=== PATIENT | female | born 1995 | race Caucasian/White ===

== ENCOUNTER 2019-01-02 22:53 | Observation (INO) ==
[2019-01-02 23:58] LABS: Hematocrit 38.5 % (37.0-47.0); Hemoglobin 12.9 gm/dL (12.5-16.0); Mean Cell Volume 93.9 fl (78-100); Mean Corpuscular Hemoglobin 31.5 pg (27-31); Mean Corpuscular Hgb Conc 33.5 g/dl (32-36); Mean Platelet Volume 9.8 fl (8-12.5); Neutrophil # 8.7 K/mm3 (1.3-6.0); Neutrophil % 73.3 % (42-75.0); Platelet Count 292 K/mm3 (150-450); Red Cell Distribution Width 13.8 % (11.5-14.0); White Blood Count 11.9 K/mm3 (4.0-10.5)
[2019-01-03 00:13] LABS: Albumin * 2.6 gm/dl (3.4-5.0); Anion Gap 15.5 mmol/L (6.8-13.8); BUN/Creatinine Ratio 13.9 (9.0-21.6); Bilirubin, Total 0.3 mg/dL (0.0-1.1); Ca. Corrected For Albumin 10.3 mg/dL (8.4-10.2); Calcium * 9.5 mg/dL (7.9-10.9); Potassium 3.5 mmol/L (3.4-4.6); Total Protein 6.8 gm/dL (6.2-8.2)
[2019-01-03] MEDS ORDERED: MISOPROSTOL 100 MCG TABLET VG PRN (00:39)
[2019-01-03] MEDS ORDERED: PENICILLIN G POTASSIUM 5 MILLIONUNT in DEXTROSE 5 % IN WATER 100 ML IV ONE ×2 (00:39)
[2019-01-03] MEDS ORDERED: RINGER'S SOLUTION,LACTATED 1,000 ML IV PRN (01:18)
[2019-01-03] MEDS ORDERED: RINGER'S SOLUTION,LACTATED 1,000 ML IV ONE (01:19)
[2019-01-03 04:10] LABS: Cocaine Ur Negative (NEGATIVE); Urine Barbiturate Negative (NEGATIVE); Urine Benzodiazepines Negative (NEGATIVE); Urine Opiates Negative (NEGATIVE); Urine PCP Negative (NEGATIVE); Urine THC Negative (NEGATIVE)
[2019-01-03 04:43] VITALS: BP 139/95
[2019-01-03] MEDS: PENICILLIN G POTASSIUM 2.5 MILLIONUNT in DEXTROSE 5 % IN WATER 100 ML IV SCH ×4 (04:55→09:24)
[2019-01-03] MEDS ORDERED: PENICILLIN G POTASSIUM 2.5 MILLIONUNT in DEXTROSE 5 % IN WATER 100 ML IV SCH ×2 (09:15)
[2019-01-03] MEDS ORDERED: PRISTIQ 100 MG PO SCH (09:30)
[2019-01-03] MEDS ORDERED: FAMOTIDINE 20 MG TABLET PO SCH (09:30)
--- NOTE | 2019-01-03 16:26 | HP ---
Chief Complaint - Chief Complaint Date of Service: 01/03/19 - admitted 01/02/19 Time of Service: 16:15 Chief Complaint: LOF History of Present Illness: 24 yo presents to L&D last pm at 37 weeks complaining of leaking of fluid for about 2 hours. Patient states she wet her pants 2x over a 2 hour period last pm. She soaked through her underpants but did not have any fluid run down her leg. Admits to mild contractions. Denies decreased movement, TADEO, visual changes, epigastric pain or recent coitus/trauma. Upon presentation to L&D she was noted to have elevated blood pressures but normal CBC, CMP, and Pr/Cr ratio. She was given a dose of cytotec and kept for further observation. After the first couple hours her BPs were all WNL and her tracing was very reassuring. She made no cervical change and was comfortable despite frequent contractions. After several hours of no cervical change, no preeclamptic symptoms, and normal blood pressures she was discharged to home. Medical History (Updated 01/03/19 @ 16:26 by Brad Corado DO) Acid reflux Onset Date: Unknown Anxiety Onset Date: Unknown Borderline personality disorder Onset Date: Unknown Colloid cyst of brain Onset Date: ~2017 Depression Onset Date: Unknown Ovarian cyst Onset Date: ~2017 Pseudotumor cerebri Onset Date: ~2013 Vestibular migraine Onset Date: ~2007 Vitamin D deficiency Onset Date: Unknown Surgical History: Surgical History (Updated 11/23/18 @ 00:14 by Kristine Becerra MD) History of breast biopsy Onset Date: ~2014 right side-fibrocystic History of endoscopy Onset Date: ~2017 History of wisdom tooth extraction Onset Date: Unknown Family History: Family History (Updated 07/23/18 @ 14:55 by Jeni Frias CMA) Mother Cancer melanoma Thyroid disease Anxiety Hypertension Father Unknown family medical history Social History: Preferred Language [place] Smoking Status Never smoker (Last Updated 12/31/18 @ 10:26 by Kristine Becerra MD) No Social History Section defined Review Of Systems (GEN) - Review of Systems Generalized/Overall Review: Present: No Symptoms Reported EENTM: Present: No Symptoms Reported Respiratory: Present: No Symptoms Reported Cardiac: Present: No Symptoms Reported Abdominal: Present: No Symptoms Reported Genitourinary: Present: Other - leaking fluid, uterine cramping. Absent: Urge ncy, Frequency, Hematuria, Dysuria Musculoskeletal: Present: No Symptoms Reported Neurological: Present: No Symptoms Reported Skin: Present: No Symptoms Reported Endocrine: Present: No Symptoms Reported Allergies/Adverse Reactions: Allergies Allergy/AdvReac Type Severity Reaction Status Date / Time No Known Allergies Allergy Verified 01/02/19 23:15 Home Medications: HOME MEDICATIONS cholecalciferol (vitamin D3) 5,000 unit capsule 5,000 unit PO DAILY 07/23/18 [Last Taken 01/01/19] desvenlafaxine succinate ER 100 mg tablet,extended release 24 hr 100 mg PO DAILY 07/23/18 [Last Taken 01/02/19] pediatric multivitamin no.76 chewable tablet 1 tab PO DAILY 10/15/18 [Last Taken 01/01/19] famotidine 20 mg tablet 20 mg PO BID 11/08/18 [Last Taken 01/02/19] Doxylamine Succinate [Unisom] 6.25 mg PO 01/02/19 [Last Taken 01/01/19] Exam - Exam Vital Signs: Vital Signs - Last Taken Temp 36.5 C 01/02/19 23:30 Pulse 95 01/02/19 23:30 Resp 18 01/02/19 23:30 BP 139/95 H 01/02/19 23:30 Pulse Ox 97 01/02/19 23:30 BPs all WNL after 1st 2 hours. D/C BP 121/63. NST reactive, no decels, good BTBV Constitutional: Present: Alert, Oriented x3, Cooperative, No distress ENT Exam: Present: hearing grossly normal Respiratory: Present: lungs clear, no respiratory distress Cardiovascular/Chest: Present: normal peripheral pulses, regular rate, rhythm, no edema Abdomen: Present: soft, nontender, no rebound tenderness, other - gravid /Rectal: Present: Other - cl/25/-3 Extremity: Present: no calf tenderness. Absent: lower extremity edema Skin Exam: Present: normal color, warm/dry, no cyanosis Neurologic: Present: alert, normal mood/affect, oriented x 3, other - DTR 2/4 b/l patella, no clonus Appearance: Present: appropriate appearance, appropriate insight Eye contact: Present: cooperative, good eye contact Diagnostic Studies: Abnormal Lab Results 01/02/19 01/02/19 01/02/19 Range/Units 23:50 23:55 23:55 WBC 11.9 H (4.0-10.5) K/mm3 RBC 4.10 L (4.2-5.4) M/mm3 MCH 31.5 H (27-31) pg Immature Gran % (Auto) 0.50 H (0.001-0.429) % Immature Gran # (Auto) 0.06 H (0.000-0.0310) K/mm3 Lymphocytes % 17.7 L (20-51) % Neutrophils # 8.7 H (1.3-6.0) K/mm3 Anion Gap 15.5 H (6.8-13.8) mmol/L Calcium Adj for Albumin 10.3 H (8.4-10.2) mg/dL ALT 14 L (19-67) U/L Albumin 2.6 L (3.4-5.0) gm/dl U Random Total Protein 13.0 H (0-12) mg/dL Laboratory Results WBC 11.9 K/mm3 (4.0-10.5) H 01/02/19 23:55 RBC 4.10 M/mm3 (4.2-5.4) L 01/02/19 23:55 Hgb 12.9 gm/dL (12.5-16.0) 01/02/19 23:55 Hct 38.5 % (37.0-47.0) 01/02/19 23:55 MCV 93.9 fl (78-100) 01/02/19 23:55 MCH 31.5 pg (27-31) H 01/02/19 23:55 MCHC 33.5 g/dl (32-36) 01/02/19 23:55 RDW 13.8 % (11.5-14.0) 01/02/19 23:55 Plt Count 292 K/mm3 (150-450) 01/02/19 23:55 MPV 9.8 fl (8-12.5) 01/02/19 23:55 Immature Gran % (Auto) 0.50 % (0.001-0.429) H 01/02/19 23:55 Immature Gran # (Auto) 0.06 K/mm3 (0.000-0.0310) H 01/02/19 23:55 73.3 % (42-75.0) 01/02/19 23:55 17.7 % (20-51) L 01/02/19 23:55 7.1 % (0.0-9) 01/02/19 23:55 1.2 % (0.0-3.0) 01/02/19 23:55 0.2 % (0.0-1.0) 01/02/19 23:55 Nucleated RBC % 0.0 k/mm3 (0-1) 01/02/19 23:55 8.7 K/mm3 (1.3-6.0) H 01/02/19 23:55 2.10 k/mm3 (1.5-3.5) 01/02/19 23:55 0.8 k/mm3 (0.0-1.0) 01/02/19 23:55 0.1 k/mm3 (0.0-0.7) 01/02/19 23:55 Absolute Basophils 0.0 k/mm3 (0.0-0.1) 01/02/19 23:55 Sodium 139 mmol/L (132-142) 01/02/19 23:55 139 mmol/L (130-142) 01/02/19 23:55 Potassium 3.5 mmol/L (3.4-4.6) 01/02/19 23:55 Chloride 103 mmol/L (97-106) 01/02/19 23:55 Carbon Dioxide 24.0 mmol/L (24-32.6) 01/02/19 23:55 15.5 mmol/L (6.8-13.8) H 01/02/19 23:55 BUN 10 mg/dL (3-23) 01/02/19 23:55 0.72 mg/dL (0.4-1.4) 01/02/19 23:55 Est GFR (Non-Af Amer) 106 mL/min (60-130) D 01/02/19 23:55 13.9 (9.0-21.6) 01/02/19 23:55 101 mg/dL (70-110) 01/02/19 23:55 Calcium 9.5 mg/dL (7.9-10.9) 01/02/19 23:55 Calcium Adj for Albumin 10.3 mg/dL (8.4-10.2) H 01/02/19 23:55 0.3 mg/dL (0.0-1.1) 01/02/19 23:55 AST 13 U/L (0-48) 01/02/19 23:55 ALT 14 U/L (19-67) L 01/02/19 23:55 155 U/L (50-170) 01/02/19 23:55 6.8 gm/dL (6.2-8.2) 01/02/19 23:55 2.6 gm/dl (3.4-5.0) L 01/02/19 23:55 Ur Random Creatinine 86.5 mg/dL (60-200) 01/02/19 23:50 U Random Total Protein 13.0 mg/dL (0-12) H 01/02/19 23:50 U [place] Prot/Creat Ratio 150 mg/gm (0-199) 01/02/19 23:50 Negative (NEGATIVE) 01/03/19 03:25 Negative (NEGATIVE) 01/03/19 03:25 Ur Phencyclidine Scrn Negative (NEGATIVE) 01/03/19 03:25 Urine Amphetamine Negative (NEGATIVE) 01/03/19 03:25 U Benzodiazepines Scrn Negative (NEGATIVE) 01/03/19 03:25 Negative (NEGATIVE) 01/03/19 03:25 Negative (NEGATIVE) 01/03/19 03:25 Assessment/Plan - Assessment/Plan (1) Elevated blood pressure complicating in third trimester, antepartum Assessment: Preeclampsia precautions. Discharge to home with follow up NST and appt in 3 days. Problem: Resolved (2) Premature rupture of membranes Problem: Ruled-out Qualifiers: PROM onset of labor timing: unspecified duration between rupture of membranes and onset of labor PROM gestational age: full term Qualified Code(s): O42.92 - Full-term premature rupture of membranes, unspecified as to length of time between rupture and onset of labor
== END 2019-01-03 12:30 | disposition home or self-care (01) ==
LOC: OBCLINIC 22:53 → INTOOBSV 01-03 00:36 → OB 01-03 00:36
PROVIDERS: ADMIT Obstetrics & Gynecology; ATTEND Obstetrics & Gynecology
CPT/HCPCS: 36415; 59025; 80053; 80307; 82570; 84155; 84156; 85025; G0378

== ENCOUNTER 2019-01-16 00:07 | Inpatient (IN) ==
[2019-01-16] MEDS ORDERED: OXYTOCIN/DEXTROSE 5%-WATER 30 UNITS/500 ML BAG IV ONE (00:10)
[2019-01-16] MEDS ORDERED: DEXTROSE 5%-LACTATED RINGERS 1,000 ML IV PRN (00:10)
[2019-01-16] MEDS ORDERED: ONDANSETRON 4 MG TAB.RAPDIS PO PRN (00:10)
[2019-01-16] MEDS ORDERED: MISOPROSTOL 100 MCG TABLET VG PRN (00:10)
[2019-01-16] MEDS ORDERED: PENICILLIN G POTASSIUM 5 MILLIONUNT in DEXTROSE 5 % IN WATER 100 ML IV ONE ×2 (00:30)
[2019-01-16 01:21] LABS: Cocaine Ur Negative (NEGATIVE); Urine Barbiturate Negative (NEGATIVE); Urine Benzodiazepines Negative (NEGATIVE); Urine Opiates Negative (NEGATIVE); Urine PCP Negative (NEGATIVE); Urine THC Negative (NEGATIVE)
[2019-01-16] MEDS: PENICILLIN G POTASSIUM 2.5 MILLIONUNT in DEXTROSE 5 % IN WATER 100 ML IV SCH ×10 (05:08→20:16)
[2019-01-16] MEDS: RINGER'S SOLUTION,LACTATED 1,000 ML IV ONE ×2 (07:19→20:17)
--- NOTE | 2019-01-16 12:00 | HP ---
Chief Complaint - Chief Complaint Date of Service: 01/16/19 Time of Service: 11:59 Chief Complaint: induction of labor History of Present Illness: 24 yo at 39 wks here for induction ofl labor due to GHTN. This complicated by anxiety/depression, pseudotumor cerebri, borderline personality. Rh positive Rubella immune GBS positive Medical History (Updated 01/03/19 @ 18:12 by Brad Corado DO) Acid reflux Onset Date: Unknown Anxiety Onset Date: Unknown Borderline personality disorder Onset Date: Unknown Colloid cyst of brain Onset Date: ~2017 Depression Onset Date: Unknown Ovarian cyst Onset Date: ~2017 Pseudotumor cerebri Onset Date: ~2013 Vestibular migraine Onset Date: ~2007 Vitamin D deficiency Onset Date: Unknown Surgical History: Surgical History (Updated 11/23/18 @ 00:14 by Kristine Becerra MD) History of breast biopsy Onset Date: ~2014 right side-fibrocystic History of endoscopy Onset Date: ~2017 History of wisdom tooth extraction Onset Date: Unknown Family History: Family History (Updated 07/23/18 @ 14:55 by Jeni Frias CMA) Mother Cancer melanoma Thyroid disease Anxiety Hypertension Father Unknown family medical history Social History: Preferred Language [place] Smoking Status Never smoker (Last Updated 01/14/19 @ 11:53 by Brad Corado DO) No Social History Section defined Review Of Systems (GEN) - Review of Systems Generalized/Overall Review: Present: No Symptoms Reported EENTM: Present: No Symptoms Reported Respiratory: Present: No Symptoms Reported Cardiac: Present: No Symptoms Reported Abdominal: Present: No Symptoms Reported Genitourinary: Present: No Symptoms Reported Musculoskeletal: Present: No Symptoms Reported Neurological: Present: No Symptoms Reported Skin: Present: No Symptoms Reported Endocrine: Present: No Symptoms Reported Allergies/Adverse Reactions: Allergies Allergy/AdvReac Type Severity Reaction Status Date / Time No Known Allergies Allergy Verified 01/16/19 00:11 Home Medications: HOME MEDICATIONS cholecalciferol (vitamin D3) 5,000 unit capsule 5,000 unit PO DAILY 07/23/18 [Last Taken 01/01/19] desvenlafaxine succinate ER 100 mg tablet,extended release 24 hr 100 mg PO DAILY 07/23/18 [Last Taken 01/02/19] pediatric multivitamin no.76 chewable tablet 1 tab PO DAILY 10/15/18 [Last Taken 01/01/19] famotidine 20 mg tablet 20 mg PO BID 11/08/18 [Last Taken 01/02/19] Doxylamine Succinate [Unisom] 25 mg PO PRN 01/02/19 [Last Taken 01/01/19] Exam - Exam Vital Signs: Vital Signs - Last Taken Temp 36.6 C 01/16/19 01:21 Pulse 98 01/16/19 01:21 Resp 16 01/16/19 01:21 BP 136/93 H 01/16/19 01:21 Pulse Ox 98 01/16/19 01:21 Constitutional: Present: Alert, Oriented x3, Cooperative, No distress ENT Exam: Present: hearing grossly normal Breasts: Present: Exam deferred Respiratory: Present: lungs clear, no respiratory distress Cardiovascular/Chest: Present: regular rate, rhythm, no edema Abdomen: Present: soft, no rebound tenderness, other - /Rectal: Present: Other - cervix- cl/th/high Extremity: Present: no pedal edema, no calf tenderness Skin Exam: Present: normal color, warm/dry, no cyanosis Lymphatic: Present: no adenopathy Neurologic: Present: alert, normal mood/affect, oriented x 3 Appearance: Present: appropriate appearance, appropriate insight Eye contact: Present: cooperative Thoughts: Present: normal thought pattern, no apparent hallucination Diagnostic Studies: Laboratory Results Negative (NEGATIVE) 01/16/19 01:19 Negative (NEGATIVE) 01/16/19 01:19 Ur Phencyclidine Scrn Negative (NEGATIVE) 01/16/19 01:19 Urine Amphetamine Negative (NEGATIVE) 01/16/19 01:19 U Benzodiazepines Scrn Negative (NEGATIVE) 01/16/19 01:19 Negative (NEGATIVE) 01/16/19 01:19 Negative (NEGATIVE) 01/16/19 01:19 Assessment/Plan - Assessment/Plan (1) Gestational hypertension Assessment: Admit for induction of labor. Epidural PRN. IV PCN for GBS prophylaxis Problem: Acute Qualifiers: Trimester: third trimester Qualified Code(s): O13.3 - Gestational [-induced] hypertension without significant proteinuria, third trimester (2) Encounter for induction of labor Problem: Acute (3) Group B Streptococcus carrier state affecting Problem: Acute
--- NOTE | 2019-01-16 12:03 | PN ---
Progess Note - Interim Date: 01/16/19 Time: 12:01 Narrative: 01/16/19 12:01 Patient rating contractions 09/27. VItals stable, occasional mildly elevated BP FHT 130, reassuring Ctxs q2-5 min, s/p cytotec 25mcg at around 0130. PCN x 3 doses Pit started at 3 mu/min Imp: 39 wk IUP, GBS carrier, GHTN Plan: continue current management.
[2019-01-16] MEDS ORDERED: FAMOTIDINE 20 MG TABLET PO SCH (12:15)
--- NOTE | 2019-01-16 13:26 | PN ---
Subjective - Date and Time Seen Date: 01/16/19 Time: 13:24 Objective - Vitals Vitals: Last Vital Signs Temp 36.6 C 01/16/19 01:21 Pulse 98 01/16/19 01:21 Resp 16 01/16/19 01:21 BP 136/93 H 01/16/19 01:21 Pulse Ox 98 01/16/19 01:21 Patient rating contractions as mild Vital signs stable. Pitocin at 3 mu/min. FHT: 130 baseline, reassuring Contractions q 5-6 min Cervix: 1-2/50/-2, Genao catheter placed within the cervix and inflated to 60 mL with normal saline Impression: Intrauterine at 39 weeks induction of labor for gestational hypertension. GBS carrier-status post 3 doses of penicillin. Plan: Continue present plan Assessment/Plan - Problems/Diagnosis (1) Gestational hypertension Problem: Acute Qualifiers: Trimester: third trimester Qualified Code(s): O13.3 - Gestational [-induced] hypertension without significant proteinuria, third trimester (2) Encounter for induction of labor Problem: Acute (3) Group B Streptococcus carrier state affecting Problem: Acute
--- NOTE | 2019-01-16 20:06 | PN ---
Progess Note - Interim Date: 01/16/19 Time: 20:02 Narrative: 01/16/19 20:02 Patient still rating her contractions as mild VItals stable S/p IV PCN x 5 doses for GBS prophylaxis FHT 125, reassuring Ctxs q1-3 min, Pitocin at 12 mu/min Cvx 6/-2, floor bag ruptured around 1900 - clear. Impression: 39 wk IUP progressing well Plan: continue present plan
[2019-01-16] MEDS ORDERED: NALOXONE HCL 1 MG/1 ML SYRG IV PRN (20:35)
[2019-01-16] MEDS ORDERED: ONDANSETRON HCL/PF 2 MG/ML VIAL IV PRN (20:35)
[2019-01-16] MEDS ORDERED: BUPIVACAINE HCL/0.9 % NACL/PF 250 ML EP PRN (20:35)
[2019-01-16] MEDS ORDERED: LIDOCAINE HCL/EPINEPHRINE 20 ML VIAL IJ ONE (20:36)
[2019-01-16] MEDS ORDERED: BUPIVACAINE HCL/PF 30 ML VIAL EP SCH (20:45)
--- NOTE | 2019-01-16 21:04 | ANES ---
Anesthesia Pre Procedure Eval Vitals/Labs: Last Vital Signs Temp 36.6 C 01/16/19 01:21 Pulse 98 01/16/19 01:21 Resp 16 01/16/19 01:21 BP 136/93 H 01/16/19 01:21 Pulse Ox 98 01/16/19 01:21 HOME MEDICATIONS cholecalciferol (vitamin D3) 5,000 unit capsule 5,000 unit PO DAILY 07/23/18 [Last Taken 01/01/19] desvenlafaxine succinate ER 100 mg tablet,extended release 24 hr 100 mg PO DAILY 07/23/18 [Last Taken 01/02/19] pediatric multivitamin no.76 chewable tablet 1 tab PO DAILY 10/15/18 [Last Taken 01/01/19] famotidine 20 mg tablet 20 mg PO BID 11/08/18 [Last Taken 01/02/19] Doxylamine Succinate [Unisom] 25 mg PO PRN 01/02/19 [Last Taken 01/01/19] Allergies/Adverse Reactions: Allergies Allergy/AdvReac Type Severity Reaction Status Date / Time No Known Allergies Allergy Verified 01/16/19 00:11 - Planned Procedure Planned Procedure: Labor epidural Medication List Reviewed:: Yes Allergies Verified: Yes Medical History (Updated 01/16/19 @ 13:15 by Brad Corado DO) Acid reflux Onset Date: Unknown Anxiety Onset Date: Unknown Borderline personality disorder Onset Date: Unknown Colloid cyst of brain Onset Date: ~2017 Depression Onset Date: Unknown Ovarian cyst Onset Date: ~2017 Pseudotumor cerebri Onset Date: ~2013 Vestibular migraine Onset Date: ~2007 Vitamin D deficiency Onset Date: Unknown Surgical History (Updated 11/23/18 @ 00:14 by Kristine Becerra MD) History of breast biopsy Onset Date: ~2014 right side-fibrocystic History of endoscopy Onset Date: ~2017 History of wisdom tooth extraction Onset Date: Unknown Family History (Updated 07/23/18 @ 14:55 by Jeni Frias CMA) Mother Cancer melanoma Thyroid disease Anxiety Hypertension Father Unknown family medical history - Cardiovascular Tolerate Activity: Good Heart Sounds: S1 & S2, Regular - Anesthesia Assessment and Plan ASA Class: PS, II Anesthesia Type Plan: Epidural
--- NOTE | 2019-01-16 21:20 | ANES ---
Post Anesthesia Assessment - Vital Signs Vitals: Last Vital Signs Temp 36.6 C 01/16/19 01:21 Pulse 98 01/16/19 01:21 Resp 16 01/16/19 01:21 BP 136/93 H 01/16/19 01:21 Pulse Ox 98 01/16/19 01:21 Airway Patency: Normal - Mental Status Level Of Consciousness: Awake - N/V Assessment Nausea/Vomiting Presence: None Dehydration:: Yes
--- NOTE | 2019-01-16 21:20 | ANES ---
Anesthesia Procedure Note Procedure Note: ANESTHESIA PROCEDURE NOTE Date of Procedure: 01/16/2019. Time of procedure: 2104. Performed by: Vasu Guido CRNA Human Performance Technologist: None. Preprocedure diagnosis: Active labor. Post procedure diagnosis: Same. Procedure: Insertion of labor epidural. Indications: The patient is a 24 -year-old female in active labor requesting labor epidural for pain management. Findings: See below. Details of the procedure: The patient was placed in a sitting position. DuraPrep as well as Betadine swabs X3 was applied to the patient's back. Patient was then draped in a sterile fashion. Lidocaine 1% was infiltrated to the skin and subcutaneous tissues at the level of the L3-4 interspace. The epidural space was identified using a 18-gauge Tuohy needle with [id number] technique. Epidural catheter was inserted to a depth of 12 centimeters at skin. Negative test dose was elicited using 3 mL of 2% preservative-free lidocaine plus epinephrine 1 200,000. The epidural catheter was then taped and secured in place. A loading dose of 8 mL of 0.25% preservative-free bupivacaine was administered to the epidural catheter after negative aspiration for blood and CSF. EBL: Minimal. Fluids: N/A. Specimen: N/A. Post procedure condition: The patient tolerated the procedure well. No complications were noted. Thank you for this consultation. Vasu Guido CRNA
[2019-01-17] MEDS: PENICILLIN G POTASSIUM 2.5 MILLIONUNT in DEXTROSE 5 % IN WATER 100 ML IV SCH ×6 (00:33→07:41)
--- NOTE | 2019-01-17 01:42 | PN ---
Progess Note - Interim Date: 01/17/19 Time: 01:39 Narrative: 01/17/19 01:39 Patient comfortable with epidural Vital signs stable. Pitocin at 12 mu/min. FHT: 120 baseline, reassuring Contractions irregular and difficult to orange picking supervisor Cervix: 7/90/-2 with caput. Patient is an 7 cm for past 5 hours Impression: Intrauterine at 39-1/7 weeks induction of labor for gestational hypertension with protracted dilation/descent. GBS carrier Plan: IUPC placed to assess adequacy of contractions. If adequate labor and no further change in cervix will consider section.
--- NOTE | 2019-01-17 05:42 | PN ---
Progess Note - Interim Date: 01/17/19 Time: 05:40 Narrative: 01/17/19 05:40 Patient comfortable with epidural Vital signs stable. Pitocin at 12 mu/min. FHT: 125 baseline, reassuring Contractions q 2-3 min Cervix: Complete/+1 Impression: Intrauterine at 39-1/7 weeks induction of labor for gestational hypertension. GBS positive. Plan: Anticipate normal spontaneous vaginal delivery within the next hour
[2019-01-17] MEDS ORDERED: MISOPROSTOL 200 MCG TABLET RC ONE (09:20)
[2019-01-17] MEDS ORDERED: OXYTOCIN/DEXTROSE 5%-WATER 30 UNITS/500 ML BAG IV ONE (09:28)
[2019-01-17] MEDS ORDERED: GLYCERIN/WITCH HAZEL LEAF 40 APPL BOX TP PRN (09:28)
[2019-01-17] MEDS ORDERED: SENNOSIDES 8.6 MG TABLET PO PRN (09:28)
[2019-01-17] MEDS ORDERED: BENZOCAINE/MENTHOL 81 SPRAY CAN TP PRN (09:28)
[2019-01-17] MEDS ORDERED: oxyCODONE HCL/ACETAMINOPHEN 1 TAB TABLET PO PRN ×2 (09:28)
[2019-01-17] MEDS ORDERED: BISACODYL 10 MG SUPP.RECT RC PRN (09:28)
[2019-01-17] MEDS ORDERED: IBUPROFEN 800 MG TABLET PO PRN (09:28)
[2019-01-17] MEDS ORDERED: HYDROCORTISONE 30 APPL TUBE TP PRN (09:28)
[2019-01-17] MEDS: DOCUSATE SODIUM 100 MG CAPSULE PO SCH ×2 (11:57→22:43)
--- NOTE | 2019-01-17 16:59 | OR ---
Operative Report - Dictated Report Narrative: Indication: Maternal exhaustion Pre Procedure: Patient was counseled to the risk, benefits, and alternatives to operative vaginal delivery. All questions were answered. Patient consented to proceed with operative vaginal delivery. Cervix was completely dilated and effaced, maternal- size appropriate for application, bladder was emptied, flexion point identified, cup choice appropriate for application site, maternal tissue excluded from vacuum cup heart rate interpretation: Reassuring, EFW 3800 g, station +2, Position of head LOP rotated to ERIBERTO Anesthesia: epidural Procedure: Total application time of the Kiwi Pro with Palm Pump was 70 seconds Maximum vacuum achieved was 500 mm Hg Number of pulls 3 Number of involuntary releases 2 Vacuum reduced between contractions Advancement in station with each pull Degree of rotation 0-45 Unable to get a good seal due to extensive hair. Continuous pumping of vacuum was required just to get enough hold to apply traction. Both involuntary releases were due to poor seal, not excess traction. Post Procedure: Viable male born at 0912 on 01/17/2019 with Apgars 8 and 9, weighing 3367 g in ERIBERTO position with right foot cord 1. Placenta spontaneously delivered EBL 200 mL, profuse bleeding was controlled with Pitocin 30 mL units per minute, uterine massage, and 800 g of Cytotec given vaginally Cord gases not collected Lacerations second-degree perineal laceration repaired with 3-0 Vicryl Rapide Extensive caput was noted prior to application of vacuum, no significant injuries were identified after delivery no shoulder dystocia History for Definition: * The number of deliveries resulting in a live the patient experienced prior to current hospitalization * The previous delivery of live twins or any live multiple gestation is considered one live event. *If primagravida or nulliparous is documented select zero for the number of previous live births. Live Events: 0
[2019-01-18] MEDS: DOCUSATE SODIUM 100 MG CAPSULE PO SCH ×2 (10:45→21:35)
--- NOTE | 2019-01-18 16:49 | PN ---
Subjective - Date and Time Seen Date: 01/18/19 Time: 16:48 Objective - Vitals Vitals: Last Vital Signs Temp 35.6 C L 01/18/19 07:40 Pulse 81 01/18/19 07:40 Resp 16 01/18/19 07:40 BP 132/75 01/18/19 07:40 Pulse Ox 98 01/18/19 07:40 Patient denies complaints. Breast-feeding well Lochia wnl Abdomen - soft, nontender Uterus - firm, at umbilicus - 1 No calf tenderness Impression: day #1 - s/p vacuum-assisted vaginal delivery. Plan: Continue routine care Assessment/Plan - Problems/Diagnosis (1) Gestational hypertension Problem: Acute Qualifiers: Trimester: third trimester Qualified Code(s): O13.3 - Gestational [-induced] hypertension without significant proteinuria, third trimester (2) Encounter for induction of labor Problem: Acute (3) Group B Streptococcus carrier state affecting Problem: Acute
[2019-01-19 07:56] VITALS: BP 116/76
[2019-01-19] MEDS ORDERED: CHOLECALCIFEROL 5,000 UNIT TABLET PO SCH (09:00)
[2019-01-19] MEDS ORDERED: MULTIVITAMINS 1 TAB TAB.CHEW PO SCH (09:00)
[2019-01-19] MEDS ORDERED: DESVENLAFAXINE SUCCINATE 100 MG PO SCH (09:00)
[2019-01-19] MEDS: DOCUSATE SODIUM 100 MG CAPSULE PO SCH (11:40)
--- NOTE | 2019-01-19 12:08 | PN ---
Subjective - Date and Time Seen Date: 01/19/19 Time: 12:00 Objective - Vitals Vitals: Last Vital Signs Temp 36.4 C 01/19/19 07:18 Pulse 80 01/19/19 07:18 Resp 16 01/19/19 07:18 BP 116/76 01/19/19 07:18 Pulse Ox 98 01/19/19 07:18 Patient denies complaints. Breast-feeding well Lochia wnl Abdomen - soft, nontender Uterus - firm, at umbilicus - 2 No calf tenderness Impression: day #2 - s/p spontaneous vaginal delivery. Plan: Routine discharge instructions Assessment/Plan - Problems/Diagnosis (1) Gestational hypertension Problem: Acute Qualifiers: Trimester: third trimester Qualified Code(s): O13.3 - Gestational [-induced] hypertension without significant proteinuria, third trimester (2) Encounter for induction of labor Problem: Acute (3) Group B Streptococcus carrier state affecting Problem: Acute
== END 2019-01-19 14:30 | disposition home or self-care (01) | DRG 768 ==
LOC: OB 00:07
PROVIDERS: ADMIT Obstetrics & Gynecology; ATTEND Obstetrics & Gynecology
CPT/HCPCS: 59025; 80307; 88307